=== PATIENT | female | born 1990 | race Caucasian/White ===

== ENCOUNTER 2020-11-16 17:28 | Emergency (ER) | payer BC, SELFPAY ==
[2020-11-16 17:30] VITALS: BP 136/88; PULSE 109; RESP 16; TEMP 36.8; O2SAT 99; BMI 27.3
[2020-11-16 18:44] VITALS: BP 136/88; PULSE 109; RESP 16; TEMP 36.8; O2SAT 99
--- NOTE | 2020-11-16 18:45 | HMH.EDUTC ---
[facility] [place] Clinical Impression: Exposure to COVID-19 virus Disposition: Home, Self-Care Condition on Discharge: Good Instructions: DI for COVID-19 (Suspected or Confirmed ), COVID-19: Protecting Yourself When You're at High Risk, Preventing the Spread of Coronavirus Discharge Instructions Additional Instructions: covid swab was sent to lab, call later today for results. self isolate until test results are known to be negative Referrals: Provider,Referral, MD [Primary Care Provider] - Time of Disposition: 18:46 Medical Decision Making - Ari Inquiry Pt receiving controlled substance: No Vital Signs: 11/16/20 17:30 11/16/20 18:44 Temperature 98.2 F 98.2 F Temperature Source Oral Pulse Rate 109 H Pulse Rate [Right Brachial] 109 H Respiratory Rate 16 16 Blood Pressure 136/88 Blood Pressure [Right Arm] 136/88 Blood Pressure Mean [Right Arm] 104 Blood Pressure Source [Right Arm] Automatic Cuff Blood Pressure Position [Right Arm] Sitting 02 Sat by Pulse Oximetry 99 Oxygen Delivery Method Room Air Orders (Tests/Meds): ORDERS Category Date Time Status Covid-19 Nasal PCR ([facility]) Routine Lab 11/16/20 17:48 Received [facility] HPI - General Chief complaint: [facility] Stated complaint: COVID TEST Time Seen by Provider: 11/16/20 18:47 Mode of Arrival: Ambulatory Source of Information: Patient Limitations: No Limitations Description of Symptoms (Recalled from Triage Doc. by RN): COVID TEST D/T EXPOSURE. DENIES SYMPTOMS HEENT Symptoms (Recalled from RN notes): No Resp Symptoms (Recalled from RN notes): No Skin Symptoms (Recalled from RN notes): No MS Symptoms (Recalled from RN notes): No Functional Status (Recalled from RN notes): WNL - History of Present Illness Provider Complaint: 29 yr old female presents for covid test. exposer but no symptoms - Related Data Home Medications Medication Instructions Recorded Confirmed escitalopram oxalate 10 mg tablet 10 mg PO DAILY 11/04/20 levonorgestrel 20 mcg/24 hours (6 INTRAUTERI 11/04/20 yrs) 52 mg intrauterine device ondansetron HCl 4 mg tablet 4 mg PO Q8H 11/04/20 Previous Rx's Medication Instructions Recorded fluconazole 150 mg tablet 150 mg PO ONCE #2 tab 11/04/20 Allergies Allergy/AdvReac Type Severity Reaction Status Date / Time No Known Allergies Allergy Verified 11/04/20 14:02 - Worker's Comp Is this a Worker's Comp case?: No [facility] History - Hepatitis A Screen Drug use history?: No High risk sexual behaviors?: No History of sexually transmitted infection?: No Currently employed?: No Childcare worker?: No Do you have indoor plumbing?: Yes Do you have electricity?: Yes Attestation statement:: This patient has been screened for Hepatitis A risk factors. I have reviewed the patient's past medical history: Yes Other Surgeries: Yes: Fractures: Yes Comment: right arm - Social History Smoking Status: Current every day smoker Alcohol Intake: current Alcohol Intake Frequency:: holidays/special occasions only Substance Use Type: denies use Occupational Status: employed Family Hx:: Cancer, Heart Attack, Asthma ROS Obtained: Yes All systems reviewed & no additional complaints - Constitutional Constitutional: Reports system reviewed and no additional complaints, except as docu, Denies fever(s) - Eyes Eyes: Reports system reviewed and no additional complaints, except as docu, Denies change in vision - ENT Ears, Nose, Mouth, and Throat: Reports system reviewed and no additional complaints, except as docu, Denies facial pain - Cardiovascular Cardiovascular: Reports system reviewed and no additional complaints, except as docu, Denies chest pain at rest - Respiratory Respiratory: Reports system reviewed and no additional complaints, except as docu, Denies change in phlegm color - Gastrointestinal Gastrointestingal: Reports: system reviewed and no additional complaints, exce
== END 2020-11-16 18:51 | disposition home or self-care (01) ==
PROVIDERS: Emergency Provider Nurse Practitioner Family
DX: Z20.822 Contact with and (suspected) exposure to COVID-19 (principal); F41.9 Anxiety disorder, unspecified; F17.210 Nicotine dependence, cigarettes, uncomplicated
CPT/HCPCS: 99202; G0463; U0003

== ENCOUNTER 2020-12-22 16:14 | Emergency (ER) | payer BC, SELFPAY ==
[2020-12-22 16:14] VITALS: BP 148/84; PULSE 72; RESP 20; TEMP 36.7; O2SAT 100; BMI 25.0
[2020-12-22 17:00] VITALS: BP 156/94; PULSE 61; O2SAT 97
[2020-12-22 17:24] LABS: Chloride 101 mmol/L (98-107); Potassium 3.7 mmoL/L (3.5-5.1); Sodium 139 mmol/L (136-145)
[2020-12-22 17:26] LABS: Blood Urea Nitrogen 8 mg/dl (7-17); Creatinine Clearance Estimated 103 mL/min (50-200); Estimated Glomerular Filt Rate 73 ml/min (>60); GFR (African American) 88 ML/MIN (>60)
[2020-12-22 17:27] LABS: Alanine Aminotransferase 19 U/L (12-78); Albumin Level 4.7 g/dl (3.5-5.0); Albumin/Globulin Ratio 1.7 (1.1-1.8); Alkaline Phosphatase 77 U/L (38-126); Anion Gap 17.7 mEq/L (5-15); Aspartate Amino Transferase 31 U/L (14-36); Basophils % 0.4 % (0.1-2.0); Bilirubin,Total 0.6 mg/dl (0.2-1.3); Calcium 9.9 mg/dl (8.4-10.2); Carbon Dioxide 24 mmol/L (22.0-30.0); Eosinophils % 0.4 % (0.1-12.0); Globulin 2.8 g/dL (1.3-3.2); Glucose 130 mg/dl (74-100); Hemoglobin 15.9 g/dL (12.2-16.2); Lymphocytes # 1.4 K/mm3 (0.7-4.5); Lymphocytes % 15.3 % (10-50); Mean Corpuscular HGB Conc 33.8 g/dL (31.8-35.4); Mean Corpuscular Hemoglobin 31.7 pg (27.0-31.2); Mean Corpuscular Volume 93.9 fl (81-99); Mean Platelet Volume 7.1 fl (7.4-10.4); Monocytes # 0.4 K/mm3 (0.1-1.0); Monocytes % 3.7 % (1.7-9.3); Neutrophils # 7.6 K/mm3 (1.8-7.8); Neutrophils % 80.3 % (37.0-80.0); Platelet Count 342 K/mm3 (142-424); Red Blood Count 5.01 M/mm3 (4.20-5.40); Red Cell Distribution Width 14.3 % (11.5-17.5); Total Protein,Serum 7.5 g/dl (6.3-8.2); White Blood Count 9.5 K/mm3 (4.8-10.8)
[2020-12-22 17:30] VITALS: BP 110/88; PULSE 63; O2SAT 99
[2020-12-22 17:43] LABS: HCG Qualitative, Serum Negative (Negative)
--- NOTE | 2020-12-22 17:48 | HMH.EDGENADL ---
ED Disposition Clinical Impression: Gastritis Qualifiers: Gastritis type: unspecified gastritis Chronicity: acute Gastritis bleeding: without bleeding Qualified Code(s): K29.00 - Acute gastritis without bleeding Nausea and vomiting Qualifiers: Vomiting type: unspecified Vomiting Intractability: non-intractable Qualified Code(s): R11.2 - Nausea with vomiting, unspecified Disposition: Home, Self-Care Condition on Discharge: Good Instructions: Nausea and Vomiting-Adult Additional Instructions: Home medications as directed. Follow with PCP in 2 to 3 days. Return emergency department for worsening nausea and vomiting, seeing blood in your vomit. Referrals: Provider,Referral, [Primary Care Provider] - 3 days Time of Disposition: 17:52 - Critical Care Critical Care Time: No Attestation: On 12/22/20, the high probability of a clinically significant, sudden or life threatening deterioration of the following system(s) required my full and direct attention, intervention and personal management. The time I documented below is in addition to time spent performing reported procedures but includes the following listed in this critical care notation. Medical Decision Making - Medical Records Medical records reviewed: Yes: I reviewed the patient's medical records. - Ari Inquiry Pt receiving controlled substance: No Vital Signs: 12/22/20 16:14 12/22/20 17:00 12/22/20 17:30 Temperature 98.0 F Temperature Source Oral Pulse Rate 61 63 Pulse Rate [Left Radial] 72 Respiratory Rate 20 Blood Pressure 156/94 H 110/88 Blood Pressure [Right Arm] 148/84 H Blood Pressure Mean [Right Arm] 105 Blood Pressure Source [Right Arm] Automatic Cuff Blood Pressure Position [Right Arm] Sitting 02 Sat by Pulse Oximetry 100 97 99 Oxygen Delivery Method Room Air - Lab Data Lab results reviewed: Yes: I reviewed the patient's lab results. Lab Results 12/22/20 16:45: WBC 9.5, RBC 5.01, Hgb 15.9, Hct 47.0, MCV 93.9, MCH 31.7 H, MCHC 33.8, RDW 14.3, Plt Count 342, MPV 7.1 L, Neut % (Auto) 80.3 H, Lymph % (Auto) 15.3, [place] % (Auto) 3.7, Eos % (Auto) 0.4, Baso % (Auto) 0.4, Neut # (Auto) 7.6, Lymph # (Auto) 1.4, [place] # (Auto) 0.4, Eos # (Auto) 0.0, Baso # (Auto) 0.0 12/22/20 16:45: Sodium 139, Potassium 3.7, Chloride 101, Carbon Dioxide 24, Anion Gap 17.7 H, BUN 8, Creatinine 0.90, Estimated Creat Clear 103, Estimated GFR 73, Est GFR ( Amer) 88, Glucose 130 H, Calcium 9.9, Total Bilirubin 0.6, AST 31, ALT 19, Alkaline Phosphatase 77, Total Protein 7.5, Albumin 4.7, Globulin 2.8, Albumin/Globulin Ratio 1.7 12/22/20 16:45: Serum HCG, Qual Negative Result diagrams: 12/22/20 16:45 12/22/20 16:45 Orders (Tests/Meds): ED MEDICATIONS Generic Name Dose Route Start Last Admin Trade Name Freq PRN Reason Stop Dose Admin Sodium Chloride 1,000 mls @ 999 mls/hr 12/22/20 17:30 12/22/20 17:25 Sod Chlor 0.9% 1000ml Bag IV 12/22/20 18:30 999 mls/hr .Q1H1M CHARLES Administration Discontinued Medications Generic Name Dose Route Start Last Admin Trade Name Freq PRN Reason Stop Dose Admin Haloperidol Lactate 0.5 mg 12/22/20 17:24 12/22/20 17:25 Haloperidol Lactate 5 Mg/Ml Vial IV 12/22/20 17:25 0.5 mg ONCE ONE Administration Ondansetron HCl 4 mg 12/22/20 17:24 12/22/20 17:25 Ondansetron 4mg/2ml Vial IV 12/22/20 17:25 4 mg ONCE ONE Administration Medical Decision Narrative: 30yo F evaluated for nausea and vomiting. Patient is in no acute distress but Zofran does not seem to improve her symptoms. She is being rehydrated currently. Laboratory studies are unremarkable and the patient is not . Treated the patient with Haldol 0.5 mg IV and this has stopped the patient vomiting. She is more comfortable now. Will allow the patient to continue to rehydrate and then she will likely be appropriate for discharge home. Encouraged patient to follow-up with her PCP/health nurse to a
[2020-12-22 18:25] VITALS: BP 150/89; PULSE 71; RESP 20; TEMP 36.7; O2SAT 99
== END 2020-12-22 18:30 | disposition home or self-care (01) ==
PROVIDERS: Emergency Provider Family Medicine
DX: K29.00 Acute gastritis without bleeding (principal); K21.9 Gastro-esophageal reflux disease without esophagitis; F17.210 Nicotine dependence, cigarettes, uncomplicated
CPT/HCPCS: 80053; 84703; 85025; 96365; 96375; 99283; J2405

== ENCOUNTER 2020-12-24 20:18 | Emergency (ER) | payer BC, SELFPAY ==
--- NOTE | 2020-12-24 20:30 | ECG_ITS ---
APPROVED REPORT Exam: Resting ECG HR:71 bpm ECG Measurements Heart Rate 71 AXES TN 88 P 60 QRSd 80 QRS 82 QT 380 T 42 QTc 412 Conclusion Sinus rhythm with short TN with premature supraventricular complexes Otherwise normal ECG Electronically signed by : Terry Morataya MD 12/25/2020 07:31:07
[2020-12-24 20:46] VITALS: BP 135/85; PULSE 69; RESP 18; O2SAT 99; BMI 25.0
[2020-12-24 21:06] LABS: Microscopic, Urine URINE MICROSCOPIC (MICROSCOPIC)
[2020-12-24 21:07] LABS: Basophils % 0.4 % (0.1-2.0); Eosinophils # 0.1 K/mm3 (0.0-0.4); Eosinophils % 0.9 % (0.1-12.0); Hematocrit 46.2 % (37.0-47.0); Hemoglobin 15.1 g/dL (12.2-16.2); Lymphocytes # 1.3 K/mm3 (0.7-4.5); Lymphocytes % 14.5 % (10-50); Mean Corpuscular HGB Conc 32.7 g/dL (31.8-35.4); Mean Corpuscular Hemoglobin 31.4 pg (27.0-31.2); Mean Platelet Volume 7.3 fl (7.4-10.4); Monocytes # 0.4 K/mm3 (0.1-1.0); Monocytes % 4.1 % (1.7-9.3); Neutrophils # 7.3 K/mm3 (1.8-7.8); Platelet Count 317 K/mm3 (142-424); Red Blood Count 4.81 M/mm3 (4.20-5.40); Red Cell Distribution Width 14.2 % (11.5-17.5); White Blood Count 9.1 K/mm3 (4.8-10.8)
--- NOTE | 2020-12-24 21:07 | CT_ITS ---
PROCEDURE INFORMATION: Exam: CT Abdomen And Pelvis With Contrast Exam date and time: 12/24/2020 9:07 PM Age: 30 years old Clinical indication: Nausea and vomiting; Abdominal pain; Generalized; Patient HX: Abd pain with n/v/d TECHNIQUE: Imaging protocol: Computed tomography of the abdomen and pelvis with contrast. Radiation optimization: All CT scans at this facility use at least one of these dose optimization techniques: automated exposure control; mA and/or kV adjustment per patient size (includes targeted exams where dose is matched to clinical indication); or iterative reconstruction. Contrast material: ISOVUE; Contrast volume: 75 ml; Contrast route: IV; COMPARISON: No relevant prior studies available. FINDINGS: Lungs: Dependent bilateral lung base opacities favor atelectasis. Liver: Normal. No mass. There is focal fat at the ligamentum teres. Gallbladder and bile ducts: Normal. No calcified stones. No ductal dilation. Pancreas: Normal. No ductal dilation. Spleen: Normal. No splenomegaly. Adrenal glands: Normal. No mass. Kidneys and ureters: Normal. No hydronephrosis. Stomach and bowel: Sigmoid colon is position within the left upper quadrant without dilated loops of proximal bowel. Appendix: No evidence of appendicitis. Intraperitoneal space: Unremarkable. No free air. No significant fluid collection. Vasculature: Unremarkable. No abdominal aortic aneurysm. Lymph nodes: Unremarkable. No enlarged lymph nodes. Urinary bladder: Unremarkable as visualized. Reproductive: An intrauterine device is present. Bones/joints: Unremarkable. No acute fracture. Soft tissues: Normal. IMPRESSION: Sigmoid colon is position within the left upper quadrant without dilated loops of proximal bowel.
[2020-12-24 21:10] LABS: Amylase 57 U/L (30-110)
[2020-12-24 21:11] LABS: Anion Gap 12.8 mEq/L (5-15); Blood Urea Nitrogen 4 mg/dl (7-17); Calcium 8.9 mg/dl (8.4-10.2); Carbon Dioxide 28 mmol/L (22.0-30.0); Chloride 101 mmol/L (98-107); Creatinine Clearance Estimated 132 mL/min (50-200); Estimated Glomerular Filt Rate 97 ml/min (>60); GFR (African American) 117 ML/MIN (>60); Glucose 104 mg/dl (74-100); Lipase 117 U/L (23-300); Potassium 3.8 mmoL/L (3.5-5.1); Sodium 138 mmol/L (136-145)
--- NOTE | 2020-12-24 21:21 | PC.NURSE ---
waiting on preg test results. Radiology & pt aware.
[2020-12-24 21:25] LABS: Appearance,Urine CLEAR (Clear); Bilirubin,Urine Negative (Negative); Blood, Urine Negative (Negative); Color,Urine YELLOW (Yellow); Glucose,Urine (UA) Negative (Negative); Ketones,Urine 1+ (Negative); Leukocyte Esterase,Urine 1+ (Negative); Nitrate,Urine Negative (Negative); Protein,Urine Negative (Negative); Specific Gravity, Urine 1.025 (1.005-1.030); Urobilinogen,Urine 0.2 EU/dl (0.2)
[2020-12-24 21:26] LABS: Urine Pregnancy, HCG Qual. Negative (Negative)
[2020-12-24 21:27] LABS: Troponin I < 0.01 ng/ml (0.00-0.034)
--- NOTE | 2020-12-24 21:34 | PC.NURSE ---
pt with radiology
[2020-12-24 21:46] LABS: Bacteria,Urine 1+ /lpf; Mucus,Urine 1+ /lpf
[2020-12-24 22:14] VITALS: BP 132/72; PULSE 59; RESP 18; O2SAT 100
--- NOTE | 2020-12-24 23:04 | HMH.EDGENADL ---
ED Disposition Clinical Impression: Vomiting Qualifiers: Vomiting type: unspecified Vomiting Intractability: intractable Nausea presence: with nausea Qualified Code(s): R11.2 - Nausea with vomiting, unspecified Disposition: Home, Self-Care Condition on Discharge: Good Instructions: DI for Nausea -- Adult Additional Instructions: Phenergan for nausea and vomiting. Continue omeprazole and famotidine. Follow-up with primary care and gastroenterology. You are being provided with a list of physicians available for follow-up of your condition. Please call a physician on this list to arrange a follow-up appointment as soon as possible. Referrals: Provider,MD Eric [Primary Care Provider] - Emmett Farah MD [Staff Physician] - - Critical Care Critical Care Time: No Attestation: On 12/24/20, the high probability of a clinically significant, sudden or life threatening deterioration of the following system(s) required my full and direct attention, intervention and personal management. The time I documented below is in addition to time spent performing reported procedures but includes the following listed in this critical care notation. Medical Decision Making - Medical Records Medical records reviewed: Yes: I reviewed the patient's medical records. MR Comment: Reviewed emergency department note from 12/22/2020 - Ari Hopkins Pt receiving controlled substance: No Vital Signs: 12/24/20 20:46 12/24/20 22:14 Pulse Rate 59 L Pulse Rate [Right Brachial] 69 Respiratory Rate 18 18 Blood Pressure 132/72 Blood Pressure [Right Arm] 135/85 Blood Pressure Mean [Right Arm] 101 Blood Pressure Source Automatic Cuff Blood Pressure Source [Right Arm] Automatic Cuff Blood Pressure Position Supine Blood Pressure Position [Right Arm] Sitting 02 Sat by Pulse Oximetry 99 100 Oxygen Delivery Method Room Air Room Air - Lab Data Lab Results 12/24/20 20:50: WBC 9.1, RBC 4.81, Hgb 15.1, Hct 46.2, MCV 96.0, MCH 31.4 H, MCHC 32.7, RDW 14.2, Plt Count 317, MPV 7.3 L, Neut % (Auto) 80.0, Lymph % (Auto) 14.5, [place] % (Auto) 4.1, Eos % (Auto) 0.9, Baso % (Auto) 0.4, Neut # (Auto) 7.3, Lymph # (Auto) 1.3, [place] # (Auto) 0.4, Eos # (Auto) 0.1, Baso # (Auto) 0.0 12/24/20 20:50: Urine HCG, Qual Negative 12/24/20 20:50: Troponin I < 0.01, Amylase 57 12/24/20 20:50: Sodium 138, Potassium 3.8, Chloride 101, Carbon Dioxide 28, Anion Gap 12.8, BUN 4 L D, Creatinine 0.70 D, Estimated Creat Clear 132, Estimated GFR 97, Est GFR ( Amer) 117 D, Glucose 104 H, Calcium 8.9, Lipase 117 12/24/20 20:50: Urine Color Yellow, Urine Appearance Clear, Urine pH 6.0, Ur Specific [place] 1.025, Urine Protein Negative, Urine Glucose (UA) Negative, Urine Ketones 1+, Urine Blood Negative, Urine Nitrate Negative, Urine Bilirubin Negative, Urine Urobilinogen 0.2, Ur Leukocyte Esterase 1+ A, Urine RBC 3-5, Urine WBC 3-5, Ur Squamous Epith Cells 3-5, Urine Bacteria 1+, Urine Mucus 1+ Result diagrams: 12/24/20 20:50 12/24/20 20:50 Orders (Tests/Meds): ED MEDICATIONS Generic Name Dose Route Start Last Admin Trade Name Freq PRN Reason Stop Dose Admin Promethazine HCl 1 yola 12/24/20 23:15 Promethazine 25mg Tablet Take Home Pack (10) PO 01/23/21 23:14 Q6HP PRN Nausea And Vomiting Discontinued Medications Generic Name Dose Route Start Last Admin Trade Name Freq PRN Reason Stop Dose Admin Belladonna Alkaloids 60 ml 12/24/20 20:54 12/24/20 20:59 Gi Cocktail 60ml Udc PO 12/24/20 20:55 60 ml ONCE ONE Administration Iopamidol 75 ml 12/24/20 21:41 12/24/20 21:42 Iopamidol-370 (76%);100ml Bottle IV 12/24/20 21:42 75 ml ONCE ONE Administration Ondansetron HCl 4 mg 12/24/20 20:54 12/24/20 20:59 Ondansetron 4mg/2ml Vial IV 12/24/20 20:55 4 mg ONCE ONE Administration Sodium Chloride 10 ml 12/24/20 21:41 12/24/20 21:42 Sodium Chloride 0.9% 10ml Syr (Rad Only) IV 12/24/20 21:42 10 ml ON
[2020-12-24 23:31] VITALS: BP 141/65; PULSE 100; RESP 18; TEMP 36.8; O2SAT 98
[2020-12-24 23:35] LABS: Amphetamine/Metha Screen,Urine Negative ng/ml (<1000); Barbiturates Screen,Urine Negative ng/ml (<200)
[2020-12-24 23:36] LABS: Benzodiazepines Screen,Urine Negative ng/ml (<200)
[2020-12-24 23:37] LABS: Cannabinoid Screen,Urine Positive ng/ml (<50); Cocaine Screen,Urine Positive ng/ml (<300)
[2020-12-24 23:38] LABS: Methadone Screen,Urine Negative ng/ml (<300)
[2020-12-24 23:39] LABS: Opiate Screen,Urine Negative ng/ml (<300); Phencyclidine Screen,Urine Negative ng/ml (<25)
== END 2020-12-24 23:30 | disposition home or self-care (01) ==
PROVIDERS: Emergency Provider Emergency Medicine
DX: R11.2 Nausea with vomiting, unspecified (principal); R07.9 Chest pain, unspecified; F12.10 Cannabis abuse, uncomplicated; F17.210 Nicotine dependence, cigarettes, uncomplicated
CPT/HCPCS: 74177; 80048; 80305; 81001; 81025; 82150; 83690; 84484; 85025; 87086; 93005; 96374; 99283; J2405; Q9967

== ENCOUNTER → 2021-01-05 09:54 | Outpatient (POV) | payer BC, SELFPAY | PROVIDERS: Visit Provider Nurse Practitioner Family | DX: Z00.00 Encounter for general adult medical examination without abnormal findings (principal) ==

== ENCOUNTER → 2021-01-28 12:10 | Outpatient (CLI) | payer BC, SELFPAY | PROVIDERS: Visit Provider Nurse Practitioner | DX: Z20.822 Contact with and (suspected) exposure to COVID-19 (principal) | CPT/HCPCS: C9803; U0003; U0005 ==